=== PATIENT | male | born 2000 | race Two or more races ===

== ENCOUNTER 2024-09-09 12:37 | Emergency (ER) | payer OTHER ==
[2024-09-09] MEDS ORDERED: IBUPROFEN 400 MG TABLET (FP) PO ONE (15:34)
[2024-09-09] MEDS ORDERED: LIDOCAINE 4% PATCH TP ONE (15:34)
[2024-09-09] MEDS: IBUPROFEN 400 MG TABLET (FP) PO ONE (15:53)
[2024-09-09] MEDS: LIDOCAINE 4% PATCH TP ONE (15:53)
[2024-09-09 16:08] VITALS: BP 130/68; PULSE 96; RESP 18; TEMP 98.4; BMI 25.7
== END 2024-09-09 16:05 | disposition home or self-care (01) ==
LOC: JERFT 12:37 → JER 12:37 → JERFT 16:05
DX: S93.402A Sprain of unspecified ligament of left ankle, initial encounter (principal); X50.1XXA Overexertion from prolonged static or awkward postures, initial encounter; Y93.01 Activity, walking, marching and hiking
CPT/HCPCS: 73610-TC-LT-FY; 73630-TC-LT; 99283-25